=== PATIENT | male | born 1975 | race African-American/Black ===

== ENCOUNTER 2016-06-18 16:28 | Emergency (ER) | payer BC, MEDICAID ==
[~2016-06-18] VITALS: Ht 185.4 cm; Wt 97.5 kg
[~2016-06-18 16:28] MED LIST: NO MEDS
[2016-06-18 16:30] VITALS: BP 152/78
== END 2016-06-18 18:29 | disposition home or self-care (01) ==
LOC: ER 16:30
DX: S01.511D Laceration without foreign body of lip, subsequent encounter (principal); Z88.0 Allergy status to penicillin
CPT/HCPCS: A4606; Z7502; Z7610

== ENCOUNTER 2017-06-07 12:00 | Emergency (ER) | payer BC, OTHER ==
[~2017-06-07] VITALS: Ht 185.4 cm; Wt 81.6 kg
[2017-06-07 12:43] VITALS: BP 127/73
== END 2017-06-07 13:38 | disposition home or self-care (01) ==
LOC: ER 12:01
DX: S39.012A Strain of muscle, fascia and tendon of lower back, initial encounter (principal); F12.90 Cannabis use, unspecified, uncomplicated; Z88.0 Allergy status to penicillin; V43.52XA Car driver injured in collision with other type car in traffic accident, initial encounter; Y93.89 Activity, other specified; Y92.89 Other specified places as the place of occurrence of the external cause; Y99.8 Other external cause status
CPT/HCPCS: 99283; A4606; Z7610

== ENCOUNTER 2020-03-07 01:45 | Emergency (ER) | payer BC, OTHER ==
[~2020-03-07] VITALS: Ht 182.9 cm; Wt 101.6 kg
[2020-03-07 01:49] VITALS: BP 141/87
--- NOTE | 2020-03-07 01:57 | NUR ---
DR CHENG AT [facility]
== END 2020-03-07 03:14 | disposition home or self-care (01) ==
LOC: ER 01:48
DX: H61.23 Impacted cerumen, bilateral (principal); Z88.0 Allergy status to penicillin
CPT/HCPCS: 69209; 99282; A6403

== ENCOUNTER 2020-04-18 15:33 | Emergency (ER) | payer OTHER ==
--- NOTE | 2020-04-18 15:45 | NUR ---
Called No response
--- NOTE | 2020-04-18 15:50 | NUR ---
Called No response
--- NOTE | 2020-04-18 15:53 | NUR ---
Called No response
== END 2020-04-18 15:54 | disposition home or self-care (01) ==
LOC: ER 15:36
DX: Z53.21 Procedure and treatment not carried out due to patient leaving prior to being seen by health care provider (principal)

== ENCOUNTER 2020-04-18 16:20 | Emergency (ER) | payer OTHER ==
[~2020-04-18] VITALS: Ht 185.4 cm; Wt 102.1 kg
[2020-04-18 16:27] VITALS: BP 120/81
--- NOTE | 2020-04-18 16:49 | NUR ---
VERBALLY DISCHARGE. STABLE CONDITION.
[2020-04-18] MEDS ORDERED: BLOOD SUGAR DIAGNOSTIC 1 EACH STRIP IN ONE (17:00)
== END 2020-04-18 16:50 | disposition home or self-care (01) ==
LOC: ER 16:24
DX: M72.2 Plantar fascial fibromatosis (principal); Z88.0 Allergy status to penicillin
CPT/HCPCS: 82962-TC

== ENCOUNTER 2020-08-26 23:03 | Emergency (ER) | payer OTHER ==
[~2020-08-26] VITALS: Ht 185.4 cm; Wt 99.8 kg
[2020-08-26 23:12] VITALS: BP 131/81
[2020-08-27] MEDS ORDERED: CYCL10TA9 PO (00:17)
[2020-08-27] MEDS ORDERED: NAPR-1164 PO (00:17)
== END 2020-08-27 00:26 | disposition home or self-care (01) ==
LOC: ER 23:09
DX: S63.697A Other sprain of left little finger, initial encounter (principal); S39.012A Strain of muscle, fascia and tendon of lower back, initial encounter; Z88.0 Allergy status to penicillin; V49.49XA Driver injured in collision with other motor vehicles in traffic accident, initial encounter; Y93.89 Activity, other specified; Y92.488 Other paved roadways as the place of occurrence of the external cause; Y99.8 Other external cause status
CPT/HCPCS: 72100-TC; 73140-TC

== ENCOUNTER 2020-10-13 15:45 | Emergency (ER) | payer OTHER ==
[~2020-10-13] VITALS: Ht 185.4 cm; Wt 102.1 kg
[~2020-10-13 15:45] MED LIST changes: +CYCL10TA9 PO; +NAPR-1164 PO
[2020-10-13 15:58] VITALS: BP 167/99
[2020-10-13 17:09] LABS: BASOPHILS % (AUTO) 0.8 % (0.0-2.0); EOSINOPHILS % (AUTO) 2.3 % (0.0-6.0); HEMATOCRIT 48 % (39-51); HEMOGLOBIN 15.6 g/dL (13.5-17.5); LYMPHOCYTES # (AUTO) 1.8 K/uL (0.8-4.8); MEAN CORPUSCULAR HGB CONC 33 g/dl (31.0-36.0); MEAN CORPUSCULAR VOLUME 86 fL (80-96); MONOCYTES # (AUTO) 0.5 K/uL (0.1-1.30); MONOCYTES % (AUTO) 11.7 % (2.0-12.0); NEUTROPHILS % (AUTO) 44.2 % (43.0-81.0); PLATELET COUNT (AUTO) 258 K/uL (150-450); RED BLOOD CELL COUNT(AUTO) 5.59 MIL/uL (4.5-6.0); WHITE BLOOD COUNT (AUTO) 4.5 K/uL (4.3-11.0)
[2020-10-13 17:21] LABS: CALCIUM, SERUM 9.3 mg/dL (8.5-10.1); CREATININE 1.1 mg/dL (0.6-1.3); POTASSIUM 4.2 mmol/L (3.5-5.1)
--- NOTE | 2020-10-13 17:47 | NUR ---
Patient discharged to home in stable condition. Written and verbal after care instructions given. Patient verbalizes understanding of instruction.
== END 2020-10-13 17:47 | disposition home or self-care (01) ==
LOC: ER 15:54
DX: K06.8 Other specified disorders of gingiva and edentulous alveolar ridge (principal); Z88.0 Allergy status to penicillin; Z87.891 Personal history of nicotine dependence; Z79.899 Other long term (current) drug therapy
CPT/HCPCS: 36415; 71045-TC; 80048-TC; 85025-TC; 85730-TC

== ENCOUNTER 2020-11-15 16:59 | Emergency (ER) | payer OTHER ==
[~2020-11-15] VITALS: Ht 185.4 cm; Wt 99.8 kg
[2020-11-15 17:06] VITALS: BP 128/100
[2020-11-15 17:54] LABS: CALCIUM, SERUM 8.7 mg/dL (8.5-10.1); CREATININE 1.2 mg/dL (0.6-1.3)
--- NOTE | 2020-11-15 18:56 | NUR ---
Patient discharged to home in stable condition. Written and verbal after care instructions given. Patient verbalizes understanding of instruction.
== END 2020-11-15 18:56 | disposition home or self-care (01) ==
LOC: ER 17:01
DX: R25.3 Fasciculation (principal); M79.89 Other specified soft tissue disorders; F17.200 Nicotine dependence, unspecified, uncomplicated; Z88.0 Allergy status to penicillin; Z79.899 Other long term (current) drug therapy
CPT/HCPCS: 36415; 73140-TC; 80048-TC

== ENCOUNTER 2020-12-15 11:50 | Emergency (ER) | payer OTHER ==
[~2020-12-15] VITALS: Ht 185.4 cm; Wt 97.5 kg
--- NOTE | 2020-12-15 12:09 | NUR ---
called for triage not in the waiting rom
[2020-12-15 12:26] VITALS: BP 143/85
--- NOTE | 2020-12-15 12:28 | NUR ---
PT CAME TO ER C/O OF A TWITCHING FEELLING IN HIS L UPPER ABDOMEN X 1 DAY. DENIES CONSTIPATION, N/V, FEVER. A&OX4, AMBULATORY, BREATHING EVEN AND UNLABORED, PULSES 2+ BILATERALLY, NORMAL BOWEL SOUNDS IN ALL 4 QUADRANTS, UPON INSPECTING ABDOMEN FOR 30 SECONDS, TWITCHING IS SEEN IN LUQ. PT BEING MONITORED.
--- NOTE | 2020-12-15 13:15 | NUR ---
PT SITTING IN BED COMFORTABLY, IN NO ACUTE DISTRESS.
[2020-12-15] MEDS ORDERED: DOCU-141 PO (13:45)
--- NOTE | 2020-12-15 13:58 | NUR ---
Patient discharged to home in stable condition. Written and verbal after care instructions given. Patient verbalizes understanding of instruction.
== END 2020-12-15 13:57 | disposition home or self-care (01) ==
LOC: ER 11:52
DX: R10.9 Unspecified abdominal pain (principal); Z88.0 Allergy status to penicillin; Z79.899 Other long term (current) drug therapy

== ENCOUNTER 2020-12-22 20:44 | Emergency (ER) | payer OTHER ==
[~2020-12-22] VITALS: Ht 185.4 cm; Wt 99.8 kg
[~2020-12-22 20:44] MED LIST changes: +DOCU-141 PO
--- NOTE | 2020-12-22 21:34 | NUR ---
BIB SELF DUE TO WANTING TO MAKE A FOLLOW UP FOR A LIVER CYST FOUND 4 DAYS AGO DUE TO HIS APPT BEING IN 1 MONTH. DENIES ANY PAIN, N/V, OR CHANGES IN BOWEL HABITS. ALL VITALS STABLE AND MD WAS AT THE BEDSIDE FOR EVAL.
[2020-12-22 23:10] LABS: BASOPHILS # (AUTO) 0.1 K/uL (0.0-0.2); BASOPHILS % (AUTO) 0.9 % (0.0-2.0); EOSINOPHILS % (AUTO) 3.2 % (0.0-6.0); HEMATOCRIT 47 % (39-51); HEMOGLOBIN 15.4 g/dL (13.5-17.5); LYMPHOCYTES # (AUTO) 2.6 K/uL (0.8-4.8); LYMPHOCYTES % (AUTO) 42.8 % (20.0-44.0); MEAN CORPUSCULAR HGB CONC 33 g/dl (31.0-36.0); MEAN CORPUSCULAR VOLUME 86 fL (80-96); MONOCYTES # (AUTO) 0.6 K/uL (0.1-1.30); MONOCYTES % (AUTO) 10.3 % (2.0-12.0); NEUTROPHILS # (AUTO) 2.6 K/uL (1.8-8.9); NEUTROPHILS % (AUTO) 42.8 % (43.0-81.0); PLATELET COUNT (AUTO) 245 K/uL (150-450); RED BLOOD CELL COUNT(AUTO) 5.47 MIL/uL (4.5-6.0); WHITE BLOOD COUNT (AUTO) 6.1 K/uL (4.3-11.0)
[2020-12-22 23:18] LABS: CALCIUM, SERUM 8.7 mg/dL (8.5-10.1); CREATININE 1.3 mg/dL (0.6-1.3); POTASSIUM 3.7 mmol/L (3.5-5.1)
[2020-12-22 23:24] LABS: ALBUMIN 3.8 g/dL (3.4-5.0); BILIRUBIN,DIRECT 0.2 mg/dL (0.0-0.2); BILIRUBIN,TOTAL 1.1 mg/dL (0.2-1.0); TOTAL PROTEIN, SERUM 8.2 g/dL (6.4-8.2)
--- NOTE | 2020-12-23 00:17 | NUR ---
Patient discharged to home in stable condition. Written and verbal after care instructions given. Patient verbalizes understanding of instruction.
[2020-12-23] MEDS ORDERED: IBUP-1953 PO (00:24)
[2020-12-23 00:41] VITALS: BP 139/87
== END 2020-12-23 00:20 | disposition home or self-care (01) ==
LOC: ER 20:48
DX: K76.89 Other specified diseases of liver (principal); Z88.0 Allergy status to penicillin; Z79.899 Other long term (current) drug therapy
CPT/HCPCS: 36415; 76705-TC; 80048-TC; 80076-TC; 85025-TC

== ENCOUNTER 2021-02-26 04:24 | Emergency (ER) | payer OTHER ==
[~2021-02-26] VITALS: Ht 185.4 cm; Wt 102.1 kg
[~2021-02-26 04:24] MED LIST changes: +IBUP-1953 PO
--- NOTE | 2021-02-26 04:35 | NUR ---
PATIENT BIBSELF C/O LEFT SIDED CP STARTED THIS AM AFTER WAKING UP. PATIENT A/O X 4, RR EVEN AND UNLABORED, NO SOB NOTED. PATIENT CONNECTED TO CARDIAC AND POX MONITOR.
[2021-02-26 05:33] LABS: BASOPHILS % (AUTO) 0.6 % (0.0-2.0); EOSINOPHILS % (AUTO) 2.5 % (0.0-6.0); HEMATOCRIT 49 % (39-51); LYMPHOCYTES # (AUTO) 2.5 K/uL (0.8-4.8); LYMPHOCYTES % (AUTO) 42.4 % (20.0-44.0); MEAN CORPUSCULAR HGB CONC 32 g/dl (31.0-36.0); MEAN CORPUSCULAR VOLUME 86 fL (80-96); MONOCYTES # (AUTO) 0.7 K/uL (0.1-1.30); MONOCYTES % (AUTO) 12.2 % (2.0-12.0); NEUTROPHILS # (AUTO) 2.5 K/uL (1.8-8.9); NEUTROPHILS % (AUTO) 42.3 % (43.0-81.0); RED BLOOD CELL COUNT(AUTO) 5.74 MIL/uL (4.5-6.0); WHITE BLOOD COUNT (AUTO) 5.8 K/uL (4.3-11.0)
[2021-02-26 06:17] LABS: D-DIMER 0.19 mg/L(FEU (0.17-0.50)
[2021-02-26 06:22] LABS: ALANINE AMINOTRANSFERASE 50 U/L (12-78); ALBUMIN 3.9 g/dL (3.4-5.0); ALKALINE PHOSPHATASE 77 U/L (46-116); ASPARTATE AMINOTRANSFERASE 24 U/L (15-37); BILIRUBIN,DIRECT 0.2 mg/dL (0.0-0.2); BILIRUBIN,TOTAL 0.8 mg/dL (0.2-1.0); CALCIUM, SERUM 8.9 mg/dL (8.5-10.1); CARBON DIOXIDE 28 mmol/L (21-32); CHLORIDE 101 mmol/L (98-107); CREATININE 1.4 mg/dL (0.6-1.3); GLUCOSE 120 mg/dL (74-106); POTASSIUM 4.2 mmol/L (3.5-5.1); SODIUM SERUM 137 mmol/L (136-145); TOTAL PROTEIN, SERUM 8.1 g/dL (6.4-8.2); UREA NITROGEN, BLOOD 16 mg/dL (7-18)
--- NOTE | 2021-02-26 07:30 | NUR ---
ASSESSED PT ON BED ASLEEP EASILY AROUSABLE, NOT IN RESPIRTORY DISTRESS, V/S STABLE, KEPT RESTED AND COMFORTABLE. WILL CONTINUE TO MONITOR.
[2021-02-26 07:48] LABS: PLATELET COUNT (AUTO) 173 K/uL (150-450)
--- NOTE | 2021-02-26 09:58 | NUR ---
IV removed. Catheter intact and site benign. Pressure and 4x4 applied to site. No bleeding noted. Patient discharged to home in stable condition. Written and verbal after care instructions given. Patient verbalizes understanding of instruction.
[2021-02-26 09:59] VITALS: BP 132/81
== END 2021-02-26 09:59 | disposition home or self-care (01) ==
LOC: ER 04:30
DX: R07.89 Other chest pain (principal); R00.0 Tachycardia, unspecified; Z88.0 Allergy status to penicillin
CPT/HCPCS: 36415; 71045-TC; 80048-TC; 80076-TC; 84484-TC; 85025-TC; 85378-TC; 85730-TC

== ENCOUNTER 2021-04-14 19:25 | Emergency (ER) | payer OTHER ==
[~2021-04-14] VITALS: Ht 185.4 cm; Wt 98.9 kg
[2021-04-14 20:49] VITALS: BP 140/88
== END 2021-04-14 20:50 | disposition home or self-care (01) ==
LOC: ER 19:29
DX: R04.2 Hemoptysis (principal); F17.200 Nicotine dependence, unspecified, uncomplicated; Z88.0 Allergy status to penicillin; Z79.1 Long term (current) use of non-steroidal anti-inflammatories (NSAID); Z79.899 Other long term (current) drug therapy
CPT/HCPCS: 71045-TC

== ENCOUNTER 2021-06-30 10:10 | Emergency (ER) | payer OTHER ==
[~2021-06-30] VITALS: Ht 185.4 cm; Wt 98.9 kg
--- NOTE | 2021-06-30 10:16 | NUR ---
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 BREATHING EVEN AND UNLABORED. AWITING MD MATIAS
[2021-06-30 10:17] VITALS: BP 130/87
--- NOTE | 2021-06-30 10:20 | NUR ---
DR CHRISTIANSON AT BEDSIDE
[2021-06-30] MEDS ORDERED: diphenhydrAMINE HCL ELIX 25 MG/10 ML UDC ONE (10:27)
[2021-06-30] MEDS ORDERED: predniSONE 20 MG TABLET ONE (10:27)
[2021-06-30] MEDS ORDERED: FAMOTIDINE (20 MG) 20 MG TABLET ONE (10:28)
[2021-06-30] MEDS: FAMOTIDINE (20 MG) 20 MG TABLET PO ONE (10:34)
[2021-06-30] MEDS: DIPHENHYDRAMINE HCL 12.5 MG/5 ML UDC PO ONE (10:34)
[2021-06-30] MEDS: predniSONE 50 MG TABLET PO ONE (10:34)
[2021-06-30] MEDS ORDERED: PRED50TA PO (11:44)
[2021-06-30] MEDS ORDERED: FAMO-131 PO (11:44)
== END 2021-06-30 11:58 | disposition home or self-care (01) ==
LOC: ER 10:10
DX: T78.40XA Allergy, unspecified, initial encounter (principal); X58.XXXA Exposure to other specified factors, initial encounter; R09.82 Postnasal drip; J02.9 Acute pharyngitis, unspecified; Z20.822 Contact with and (suspected) exposure to COVID-19; R73.03 Prediabetes; Z88.0 Allergy status to penicillin
CPT/HCPCS: 87426; 99284; C9803; Q0163 ×2

== ENCOUNTER 2021-12-26 14:37 | Emergency (ER) | payer OTHER ==
[~2021-12-26] VITALS: Ht 185.4 cm; Wt 101.6 kg
[~2021-12-26 14:37] MED LIST changes: +FAMO-131 PO; +PRED50TA PO
--- NOTE | 2021-12-26 16:24 | NUR ---
Patient discharged to home in stable condition. Written and verbal after care instructions given. Patient verbalizes understanding of instruction.
[2021-12-26 16:39] VITALS: BP 132/78
== END 2021-12-26 16:39 | disposition home or self-care (01) ==
LOC: ER 14:40
DX: R25.3 Fasciculation (principal); Z88.0 Allergy status to penicillin; Z79.899 Other long term (current) drug therapy

== ENCOUNTER 2022-07-21 09:38 | Emergency (ER) | payer OTHER ==
[~2022-07-21] VITALS: Ht 185.4 cm; Wt 102.1 kg
--- NOTE | 2022-07-21 10:17 | NUR ---
CALLED RT FOR BREATHING TX
[2022-07-21] MEDS ORDERED: predniSONE 20 MG TABLET ONE (10:22)
[2022-07-21] MEDS ORDERED: ALBUTEROL FS 2.5 MG/3 ML VIAL.NEB ONE (10:23)
[2022-07-21] MEDS ORDERED: IPRATROPIUM NEB FS 0.5 MG/2.5 ML AMPUL.NEB ONE (10:23)
--- NOTE | 2022-07-21 10:24 | NUR ---
RT AT BEDSIDE FOR BREATHING TX
[2022-07-21] MEDS: predniSONE 20 MG TABLET PO ONE (10:27)
[2022-07-21] MEDS: IPRATROPIUM NEB FS 0.5 MG/2.5 ML AMPUL.NEB NEB ONE (10:28)
[2022-07-21] MEDS: ALBUTEROL FS 2.5 MG/3 ML VIAL.NEB CONTNEB ONE (10:28)
[2022-07-21] MEDS ORDERED: ALBU18HF2 INH (11:03)
[2022-07-21] MEDS ORDERED: PRED20TA PO (11:03)
--- NOTE | 2022-07-21 11:15 | NUR ---
Patient discharged to home in stable condition. Written and verbal after care instructions given. Patient verbalizes understanding of instruction.
[2022-07-21 11:16] VITALS: BP 135/85; TEMP 98
== END 2022-07-21 11:16 | disposition home or self-care (01) ==
LOC: ER 09:45
DX: J20.9 Acute bronchitis, unspecified (principal); Z86.16 Personal history of COVID-19; Z79.899 Other long term (current) drug therapy; Z88.0 Allergy status to penicillin
CPT/HCPCS: 99283; 94640; J7512

== ENCOUNTER 2023-02-25 09:37 | Emergency (ER) | payer OTHER ==
[~2023-02-25] VITALS: Ht 185.4 cm; Wt 104.3 kg
[~2023-02-25 09:37] MED LIST changes: +ALBU18HF2 INH; +PRED20TA PO
[2023-02-25] MEDS: NAPROXEN 250 MG TABLET PO ONE (10:30)
[2023-02-25] MEDS ORDERED: NAPROXEN 250 MG TABLET ONE (10:36)
[2023-02-25 10:42] LABS: MEAN CORPUSCULAR VOLUME 83 fL (80-96)
[2023-02-25 11:04] LABS: CALCIUM, SERUM 8.9 mg/dL (8.5-10.1); CARBON DIOXIDE 28 mmol/L (21-32); CHLORIDE 105 mmol/L (98-107); CREATININE 1.3 mg/dL (0.6-1.3); GLUCOSE 121 mg/dL (74-106); POTASSIUM 3.9 mmol/L (3.5-5.1); SODIUM SERUM 138 mmol/L (136-145); UREA NITROGEN, BLOOD 13 mg/dL (7-18)
[2023-02-25 11:13] LABS: BASOPHILS # (AUTO) 0.1 K/uL (0.0-0.2); BASOPHILS % (AUTO) 1.4 % (0.0-2.0); EOSINOPHILS # (AUTO) 0.3 K/uL (0.0-0.7); EOSINOPHILS % (AUTO) 5.7 % (0.0-6.0); HEMATOCRIT 48 % (39-51); HEMOGLOBIN 15.5 g/dL (13.5-17.5); LYMPHOCYTES # (AUTO) 2.2 K/uL (0.8-4.8); LYMPHOCYTES % (AUTO) 41.5 % (20.0-44.0); MEAN CORPUSCULAR HEMOGLOBIN 27 PG (26.0-33.0); MEAN CORPUSCULAR HGB CONC 32 g/dl (31.0-36.0); MONOCYTES # (AUTO) 0.6 K/uL (0.1-1.30); MONOCYTES % (AUTO) 10.6 % (2.0-12.0); NEUTROPHILS # (AUTO) 2.1 K/uL (1.8-8.9); NEUTROPHILS % (AUTO) 40.8 % (43.0-81.0); PLATELET COUNT (AUTO) 243 K/uL (150-450); RED BLOOD CELL COUNT(AUTO) 5.77 MIL/uL (4.5-6.0); WHITE BLOOD COUNT (AUTO) 5.3 K/uL (4.3-11.0)
[2023-02-25 13:40] VITALS: BP 150/82; TEMP 98.4; O2SAT 99
== END 2023-02-25 13:41 | disposition home or self-care (01) ==
LOC: ER 09:37
DX: S29.011A Strain of muscle and tendon of front wall of thorax, initial encounter (principal); Z86.16 Personal history of COVID-19; Z88.0 Allergy status to penicillin; X58.XXXA Exposure to other specified factors, initial encounter; Y93.89 Activity, other specified; Y92.89 Other specified places as the place of occurrence of the external cause; Y99.8 Other external cause status
CPT/HCPCS: 36415; 71045-TC; 80048-TC; 84484-TC; 85025-TC

== ENCOUNTER 2023-07-10 14:48 | Emergency (ER) | payer OTHER ==
[~2023-07-10] VITALS: Ht 185.4 cm; Wt 102.1 kg
[2023-07-10 15:57] VITALS: BP 147/89; TEMP 98.4; O2SAT 100
== END 2023-07-10 15:57 | disposition home or self-care (01) ==
LOC: ER 14:53
DX: N48.89 Other specified disorders of penis (principal); F17.200 Nicotine dependence, unspecified, uncomplicated; Z79.899 Other long term (current) drug therapy; Z88.0 Allergy status to penicillin

== ENCOUNTER 2024-02-23 17:17 | Emergency (ER) | payer OTHER ==
[~2024-02-23] VITALS: Ht 185.4 cm; Wt 99.8 kg
[2024-02-23 19:01] LABS: APPEARANCE,URINE Clear (CLEAR); BILIRUBIN,URINE Negative (NEGATIVE); BLOOD, URINE Trace-lysed Ery/uL (NEGATIVE); COLOR,URINE YELLOW (YELLOW); KETONES,URINE Negative (NEGATIVE); LEUKOCYTE ESTERASE ,URINE Negative (NEGATIVE); NITRITE, URINE Negative (NEGATIVE); PROTEIN,URINE Negative (NEGATIVE); UGLUCOSE Negative (NEGATIVE); UROBILINOGEN,URINE 0.2 EU/dL (0.2)
[2024-02-23 19:26] LABS: ADD URINE CULTURE NO; BACTERIA,URINE Rare /HPF (None Seen); SQUAMOUS EPITHELIAL CELL,UR Rare /HPF (None Seen)
[2024-02-23] MEDS ORDERED: GENTAMICIN 80 MG/2 ML VIAL ONE ×2 (19:39→19:46)
[2024-02-23] MEDS ORDERED: AZITHROMYCIN 250 MG TABLET ONE ×2 (19:39→20:07)
[2024-02-23] MEDS: GENTAMICIN 80 MG/2 ML VIAL IM ONE (20:23)
[2024-02-23] MEDS: AZITHROMYCIN 250 MG TABLET PO ONE (20:23)
[2024-02-23] MEDS ORDERED: DOXY-226 PO (20:44)
[2024-02-23 21:00] VITALS: BP 150/106; TEMP 97.9; O2SAT 99
[2024-02-24 21:12] LABS: HIV-1 p24 ANTIGEN NON REACTIVE (NONREACTIVE); HIV-1/2 ANTIBODY NON REACTIVE (NONREACTIVE)
[2024-02-27 23:09] LABS: CHLAMYDIA TRACHOMATIS NAA Negative (Negative); NEISSERIA GONORRHOEAE NAA Negative (Negative)
[2024-02-28] MEDS ORDERED: OSEL75CA PO (13:09)
== END 2024-02-23 21:02 | disposition home or self-care (01) ==
LOC: ER 17:27
DX: N34.2 Other urethritis (principal); F17.200 Nicotine dependence, unspecified, uncomplicated; Z79.52 Long term (current) use of systemic steroids; Z86.16 Personal history of COVID-19; Z88.0 Allergy status to penicillin
CPT/HCPCS: 99283; 96372; 81001; 36415; 87806; 87491; 87591; J1580 ×2

== ENCOUNTER → 2024-02-28 | Emergency (ER) | payer OTHER ==
[~2024-02-28] VITALS: Ht 185.4 cm; Wt 99.8 kg
[~2024-02-28] MED LIST changes: +ACETAMINOPHEN ES 500 MG TABLET ONE; +DOXY-226 PO; +KETOROLAC TROMETHAMINE 15 MG/ML VIAL ONE; +OSEL75CA PO
[2024-02-28] MEDS: IV NS 0.9% 500 ML BAG IV ONE (12:24)
[2024-02-28] MEDS: KETOROLAC TROMETHAMINE 15 MG/ML VIAL IV ONE (12:25)
[2024-02-28] MEDS: ACETAMINOPHEN ES 500 MG TABLET PO ONE (12:26)
[2024-02-28 12:50] LABS: BASOPHILS % (AUTO) 0.8 % (0.0-2.0); EOSINOPHILS % (AUTO) 0.1 % (0.0-6.0); HEMATOCRIT 54 % (39-51); HEMOGLOBIN 17.8 g/dL (13.5-17.5); LYMPHOCYTES # (AUTO) 0.6 K/uL (0.8-4.8); LYMPHOCYTES % (AUTO) 12.1 % (20.0-44.0); MEAN CORPUSCULAR HEMOGLOBIN 28 PG (26.0-33.0); MEAN CORPUSCULAR HGB CONC 33 g/dl (31.0-36.0); MEAN CORPUSCULAR VOLUME 85 fL (80-96); MONOCYTES # (AUTO) 0.9 K/uL (0.1-1.30); MONOCYTES % (AUTO) 18.9 % (2.0-12.0); NEUTROPHILS # (AUTO) 3.2 K/uL (1.8-8.9); NEUTROPHILS % (AUTO) 68.1 % (43.0-81.0); PLATELET COUNT (AUTO) 156 K/uL (150-450); RED BLOOD CELL COUNT(AUTO) 6.37 MIL/uL (4.5-6.0); RED CELL DISTRIBUTION WIDTH 13.9 % (11.5-15.0); WHITE BLOOD COUNT (AUTO) 4.7 K/uL (4.3-11.0)
[2024-02-28 13:07] LABS: APPEARANCE,URINE CLEAR (CLEAR); BILIRUBIN,URINE NEGATIVE (NEGATIVE); BLOOD, URINE 1+ Ery/uL (NEGATIVE); COLOR,URINE YELLOW (YELLOW); KETONES,URINE 1+ mg/dL (NEGATIVE); LEUKOCYTE ESTERASE ,URINE NEGATIVE (NEGATIVE); NITRITE, URINE NEGATIVE (NEGATIVE); PROTEIN,URINE 1+ mg/dl (NEGATIVE); UGLUCOSE NEGATIVE (NEGATIVE); UROBILINOGEN,URINE 0.2 EU/dL (0.2)
[2024-02-28 13:12] LABS: CALCIUM, SERUM 9.1 mg/dL (8.5-10.1); CREATININE 1.4 mg/dL (0.6-1.3); POTASSIUM 3.8 mmol/L (3.5-5.1)
[2024-02-28 13:14] LABS: ADD URINE CULTURE NO; BACTERIA,URINE Rare /HPF (None Seen); SQUAMOUS EPITHELIAL CELL,UR Few /HPF (None Seen)
[2024-02-28 14:08] VITALS: BP 135/78; TEMP 100.6; O2SAT 97
== END ==
LOC: ER 11:18
DX: J11.1 Influenza due to unidentified influenza virus with other respiratory manifestations (principal); F17.200 Nicotine dependence, unspecified, uncomplicated; Z79.52 Long term (current) use of systemic steroids; Z86.16 Personal history of COVID-19; Z88.0 Allergy status to penicillin; Z60.2 Problems related to living alone; Z20.822 Contact with and (suspected) exposure to COVID-19
CPT/HCPCS: 99285; 96374; 71045; 87426; 87804 ×2; 85025; 80048; 87086; 81001; 36415; J1885; J7030 ×2

== ENCOUNTER 2024-05-09 10:33 | Emergency (ER) | payer OTHER ==
[~2024-05-09] VITALS: Ht 185.4 cm; Wt 99.8 kg
[~2024-05-09 10:33] MED LIST changes: -ACETAMINOPHEN ES 500 MG TABLET ONE; -KETOROLAC TROMETHAMINE 15 MG/ML VIAL ONE
[2024-05-09] MEDS ORDERED: KETOROLAC TROMETHAMINE INJ 30 MG/ML VIAL ONE (11:09)
[2024-05-09] MEDS: KETOROLAC TROMETHAMINE 15 MG/ML VIAL IV ONE (11:25)
[2024-05-09 11:33] LABS: EOSINOPHILS # (AUTO) 0.3 K/uL (0.0-0.7); EOSINOPHILS % (AUTO) 6.6 % (0.0-6.0); HEMATOCRIT 50 % (39-51); HEMOGLOBIN 16.2 g/dL (13.5-17.5); LYMPHOCYTES # (AUTO) 1.6 K/uL (0.8-4.8); LYMPHOCYTES % (AUTO) 37.5 % (20.0-44.0); MEAN CORPUSCULAR HEMOGLOBIN 28 PG (26.0-33.0); MEAN CORPUSCULAR HGB CONC 33 g/dl (31.0-36.0); MEAN CORPUSCULAR VOLUME 84 fL (80-96); MONOCYTES # (AUTO) 0.4 K/uL (0.1-1.30); NEUTROPHILS # (AUTO) 1.9 K/uL (1.8-8.9); NEUTROPHILS % (AUTO) 45.9 % (43.0-81.0); PLATELET COUNT (AUTO) 242 K/uL (150-450); RED CELL DISTRIBUTION WIDTH 14.5 % (11.5-15.0); WHITE BLOOD COUNT (AUTO) 4.2 K/uL (4.3-11.0)
[2024-05-09 11:43] LABS: CALCIUM, SERUM 9.2 mg/dL (8.5-10.1); CREATININE 1.3 mg/dL (0.6-1.3); POTASSIUM 3.9 mmol/L (3.5-5.1)
[2024-05-09 11:49] LABS: ALBUMIN 3.6 g/dL (3.4-5.0); BILIRUBIN,DIRECT 0.2 mg/dL (0.0-0.2); TOTAL PROTEIN, SERUM 7.8 g/dL (6.4-8.2)
[2024-05-09 12:28] LABS: APPEARANCE,URINE CLEAR (CLEAR); BILIRUBIN,URINE NEGATIVE (NEGATIVE); BLOOD, URINE NEGATIVE Ery/uL (NEGATIVE); COLOR,URINE YELLOW (YELLOW); KETONES,URINE NEGATIVE (NEGATIVE); LEUKOCYTE ESTERASE ,URINE NEGATIVE (NEGATIVE); NITRITE, URINE NEGATIVE (NEGATIVE); PROTEIN,URINE NEGATIVE (NEGATIVE); UGLUCOSE NEGATIVE (NEGATIVE); UROBILINOGEN,URINE 0.2 EU/dL (0.2)
[2024-05-09] MEDS ORDERED: IBUP-1490 PO (13:01)
[2024-05-09 13:21] VITALS: BP 134/83; TEMP 98.2; O2SAT 96
== END 2024-05-09 13:22 | disposition home or self-care (01) ==
LOC: ER 10:36
DX: K85.90 Acute pancreatitis without necrosis or infection, unspecified (principal); F17.200 Nicotine dependence, unspecified, uncomplicated; E11.9 Type 2 diabetes mellitus without complications; Z79.52 Long term (current) use of systemic steroids; Z86.16 Personal history of COVID-19; Z88.0 Allergy status to penicillin; Z79.899 Other long term (current) drug therapy
CPT/HCPCS: 99285; 74176; 96374; 85025; 80048; 83690; 80076; 81003; 36415; J1885

== ENCOUNTER 2024-05-30 18:11 | Emergency (ER) | payer OTHER ==
[~2024-05-30] VITALS: Ht 185.4 cm; Wt 99.8 kg
[~2024-05-30 18:11] MED LIST changes: +IBUP-1490 PO
[2024-05-30 18:50] VITALS: BP 143/79; TEMP 98.2; O2SAT 95
[2024-05-30] MEDS ORDERED: BENZ-13 PO (19:58)
[2024-05-30] MEDS ORDERED: BENZONATATE 100 MG CAPSULE PO ONE (20:03)
[2024-05-30] MEDS: BENZONATATE 100 MG CAPSULE PO PRN (20:07)
== END 2024-05-30 20:52 | disposition home or self-care (01) ==
LOC: ER 18:22
DX: R05.9 Cough, unspecified (principal); E11.9 Type 2 diabetes mellitus without complications; F17.200 Nicotine dependence, unspecified, uncomplicated; Z79.52 Long term (current) use of systemic steroids; Z88.0 Allergy status to penicillin; Z60.2 Problems related to living alone; Z79.899 Other long term (current) drug therapy; Z86.16 Personal history of COVID-19
CPT/HCPCS: 71045-TC

== ENCOUNTER 2024-06-16 19:05 | Emergency (ER) | payer OTHER ==
[~2024-06-16] VITALS: Ht 185.4 cm; Wt 99.8 kg
[~2024-06-16 19:05] MED LIST changes: +BENZ-13 PO
[2024-06-16] MEDS ORDERED: ONDANSETRON HCL/PF 4 MG/2 ML VIAL ONE (19:47)
[2024-06-16] MEDS ORDERED: PANTOPRAZOLE 40 MG VIAL ONE (19:47)
[2024-06-16] MEDS ORDERED: MORPHINE SULFATE INJ 4 MG/ML DISP.SYRIN ONE (19:48)
[2024-06-16] MEDS: PANTOPRAZOLE 40 MG VIAL IV ONE (20:04)
[2024-06-16] MEDS: IV NS 0.9% 1,000 ML BAG IV ONE (20:04)
[2024-06-16] MEDS: MORPHINE SULFATE INJ 2 MG/ML DISP.SYRIN IV ONE (20:04)
[2024-06-16] MEDS: ONDANSETRON HCL/PF 4 MG/2 ML VIAL IVP ONE (20:04)
[2024-06-16 20:11] LABS: BASOPHILS # (AUTO) 0.2 K/uL (0.0-0.2); BASOPHILS % (AUTO) 4.9 % (0.0-2.0); EOSINOPHILS # (AUTO) 0.2 K/uL (0.0-0.7); HEMATOCRIT 49 % (39-51); HEMOGLOBIN 16.2 g/dL (13.5-17.5); LYMPHOCYTES # (AUTO) 2.3 K/uL (0.8-4.8); LYMPHOCYTES % (AUTO) 46.9 % (20.0-44.0); MEAN CORPUSCULAR HEMOGLOBIN 28 PG (26.0-33.0); MEAN CORPUSCULAR HGB CONC 33 g/dl (31.0-36.0); MEAN CORPUSCULAR VOLUME 84 fL (80-96); MONOCYTES # (AUTO) 0.4 K/uL (0.1-1.30); MONOCYTES % (AUTO) 8.5 % (2.0-12.0); NEUTROPHILS # (AUTO) 1.7 K/uL (1.8-8.9); NEUTROPHILS % (AUTO) 34.7 % (43.0-81.0); PLATELET COUNT (AUTO) 222 K/uL (150-450); RED BLOOD CELL COUNT(AUTO) 5.82 MIL/uL (4.5-6.0); RED CELL DISTRIBUTION WIDTH 13.8 % (11.5-15.0); WHITE BLOOD COUNT (AUTO) 4.9 K/uL (4.3-11.0)
[2024-06-16 20:17] LABS: CALCIUM, SERUM 8.8 mg/dL (8.5-10.1); CREATININE 1.4 mg/dL (0.6-1.3); POTASSIUM 3.9 mmol/L (3.5-5.1)
[2024-06-16 20:23] LABS: ALBUMIN 3.5 g/dL (3.4-5.0); BILIRUBIN,DIRECT 0.2 mg/dL (0.0-0.2); BILIRUBIN,TOTAL 1.1 mg/dL (0.2-1.0); TOTAL PROTEIN, SERUM 7.7 g/dL (6.4-8.2)
[2024-06-16] MEDS ORDERED: IOHEXOL-300 100 ML VIAL IV ONE (20:31)
[2024-06-16] MEDS ORDERED: CT SWABBABLE VALVE TRANS SET 1 EA INFUS.SET MC ONE (20:31)
[2024-06-16] MEDS ORDERED: IOHEXOL 240MG/ML 50 ML IV ONE (20:31)
[2024-06-16 21:55] LABS: APPEARANCE,URINE CLEAR (CLEAR); BILIRUBIN,URINE Negative (NEGATIVE); BLOOD, URINE Negative Ery/uL (NEGATIVE); COLOR,URINE YELLOW (YELLOW); KETONES,URINE Negative (NEGATIVE); LEUKOCYTE ESTERASE ,URINE Negative (NEGATIVE); NITRITE, URINE NEGATIVE (NEGATIVE); PH,URINE 5.5 (5.0-8.0); PROTEIN,URINE Negative (NEGATIVE); UGLUCOSE Negative (NEGATIVE); UROBILINOGEN,URINE 0.2 EU/dL (0.2)
[2024-06-16 22:13] VITALS: BP 152/96; TEMP 98.7; O2SAT 97
== END 2024-06-16 22:14 | disposition home or self-care (01) ==
LOC: ER 19:10
DX: R10.9 Unspecified abdominal pain (principal); F17.200 Nicotine dependence, unspecified, uncomplicated; Z79.52 Long term (current) use of systemic steroids; Z87.19 Personal history of other diseases of the digestive system; Z88.0 Allergy status to penicillin; Z60.2 Problems related to living alone; Z59.00 Homelessness unspecified
CPT/HCPCS: 99285; 96374; 96361; 96375; 74177; 85025; 80048; 83690; 80076; 81003; 36415; 80320; J2270; J2405; J7030; J2470; Q9966; Q9967; G0480

== ENCOUNTER 2024-12-19 10:28 | Emergency (ER) | payer OTHER ==
[~2024-12-19] VITALS: Ht 182.9 cm; Wt 98.4 kg
[2024-12-19 10:59] VITALS: BP 142/87; TEMP 98.1
[2024-12-19] MEDS ORDERED: IBUP-1955 PO (13:48)
[2024-12-19 13:56] VITALS: O2SAT 97
== END 2024-12-19 13:57 | disposition home or self-care (01) ==
LOC: ER 10:33
DX: I82.611 Acute embolism and thrombosis of superficial veins of right upper extremity (principal); F17.200 Nicotine dependence, unspecified, uncomplicated; Z79.52 Long term (current) use of systemic steroids; Z88.0 Allergy status to penicillin
CPT/HCPCS: 93971-TC

== ENCOUNTER 2024-12-26 21:50 | Emergency (ER) | payer OTHER ==
[~2024-12-26] VITALS: Ht 185.4 cm; Wt 99.8 kg
[~2024-12-26 21:50] MED LIST changes: +IBUP-1955 PO
[2024-12-26 23:12] VITALS: BP 134/70; TEMP 98.2; O2SAT 97
== END 2024-12-27 00:58 | disposition home or self-care (01) ==
LOC: ER 21:53
DX: M79.662 Pain in left lower leg (principal); F17.200 Nicotine dependence, unspecified, uncomplicated; Z88.0 Allergy status to penicillin; Z79.52 Long term (current) use of systemic steroids; Z60.2 Problems related to living alone
CPT/HCPCS: 93971-TC